=== PATIENT | female | born 1995 | race Caucasian/White ===

== ENCOUNTER 2016-05-23 21:00 | Emergency (ER) | payer OTHER ==
[2016-05-23] MEDS ORDERED: HYDROXYZINE PAMOATE 50 MG CAPSULE PO ONE (21:48)
--- NOTE | 2016-05-23 21:49 | ER Document Report ---
ED Medical Screen (RME) - General Stated Complaint: ITCHING,NAUSEA Notes: 21 yo c/o generalized pruritis, nausea x 4 weeks Had blood done in [place] and LFTs were elevated. No fever. No PCM local. No other symptoms
[2016-05-23 22:20] LABS: ABSOLUTE BASOPHILS # (AUTO) 0.1 10^3/uL (0.0-0.2); ABSOLUTE EOSINOPHILS # (AUTO) 0.3 10^3/uL (0.0-0.6); ABSOLUTE MONOCYTES (AUTO) 0.6 10^3/uL (0.1-1.4); ABSOLUTE NEUT (AUTO) 4.1 10^3/uL (1.7-8.2); BASOPHILS % (AUTO) 0.8 % (0-2); EOSINOPHILS % (AUTO) 3.3 % (0-6); HEMATOCRIT 40.3 % (36.0-47.0); HEMOGLOBIN 13.5 g/dL (12.0-15.5); HGB HCT DIFFERENCE 0.2; LYMPHOCYTES % (AUTO) 37.8 % (13-45); MEAN CORPUSCULAR HEMOGLOBIN 26.5 pg (27.0-33.4); MEAN CORPUSCULAR HGB CONC 33.6 g/dL (32.0-36.0); MEAN CORPUSCULAR VOLUME 79 fl (80-97); SEGMENTED NEUTROPHILS % (AUTO) 51.1 % (42-78)
[2016-05-23 22:34] LABS: ALANINE AMINOTRANSFERASE 87 U/L (9-52); ALBUMIN 4.6 g/dL (3.5-5.0); ALKALINE PHOSPHATASE 80 U/L (38-126); ANION GAP 13 (5-19); ASPARTATE AMINO TRANSFERASE 57 U/L (14-36); BILIRUBIN,TOTAL 0.3 mg/dL (0.2-1.3); BLOOD UREA NITROGEN 15 mg/dL (7-20); CARBON DIOXIDE 29 mmol/L (22-30); CHLORIDE 101 mmol/L (98-107); CREATININE RESULT 0.64 mg/dL (0.52-1.25); GLUCOSE 118 mg/dL (75-110); SODIUM 142.5 mmol/L (137-145); TOTAL PROTEIN 7.8 g/dL (6.3-8.2)
[2016-05-24 02:51] LABS: APPEARANCE,URINE CLOUDY; BILIRUBIN,URINE NEGATIVE (NEGATIVE); GLUCOSE, URINE NEGATIVE (NEGATIVE); KETONES,URINE NEGATIVE (NEGATIVE); LEUKOCYTE ESTERASE,URINE MODERATE (NEGATIVE); NITRITE,URINE NEGATIVE (NEGATIVE); PROTEIN,URINE NEGATIVE (NEGATIVE); URINE SPECIFIC GRAVITY 1.027; UROBILINOGEN,URINE NEGATIVE mg/dL (<2.0)
--- NOTE | 2016-05-24 03:36 | ER Document Report ---
ED General - General Time seen by provider: 03:30 Mode of Arrival: Ambulatory Information source: Patient TRAVEL OUTSIDE OF THE [place] IN LAST 30 DAYS: No - HPI Onset: Other - see HPI Onset/Duration: Sudden, Constant Quality of pain: Other - itchy <RIKY BOYD - Last Filed: 05/24/16 05:28> <COLEMANSP BOSTON - Last Filed: 05/24/16 05:44> - General Chief Complaint: Itching Stated Complaint: ITCHING,NAUSEA Notes: Patient is a 21 year old female presenting to the emergency department complaining of constant itching, tiredness, nausea, and some bruising to her legs. Patient states her liver enzymes were elevated when she had blood work completed in [place]. Patient wanted to get another set of blood work so check the liver enzyme level as well as figure out why she is itching all the time. Patient states the itching has been constant for the past 4 weeks. Patient states that she was given some vistaril for her itching and it provided some relief. (RIKY BOYD) Past Medical History - General Information source: Patient - Social History Smoking Status: Never Smoker Cigarette use (# per day): No Chew tobacco use (# tins/day): No Frequency of alcohol use: None Drug Abuse: None Family History: None Patient has suicidal ideation: No Patient has homicidal ideation: No - Immunizations Hx Diphtheria, Pertussis, Tetanus Vaccination: Yes <RIKY BOYD - Last Filed: 05/24/16 05:28> Review of Systems - Review of Systems Constitutional: No symptoms reported EENT: No symptoms reported Cardiovascular: No symptoms reported Respiratory: No symptoms reported Gastrointestinal: See HPI, Nausea Genitourinary: No symptoms reported Female Genitourinary: No symptoms reported Musculoskeletal: No symptoms reported Skin: See HPI Hematologic/Lymphatic: No symptoms reported Neurological/Psychological: No symptoms reported -: Yes All other systems reviewed and negative <RIKY BOYD - Last Filed: 05/24/16 05:28> Physical Exam - General General appearance: Other - patient is actively itching her extremities during exam In distress: Mild - HEENT Head: Normocephalic, Atraumatic Eyes: Normal Pupils: PERRL Mucous membranes: Normal - Respiratory Respiratory status: No respiratory distress Chest status: Nontender Breath sounds: Normal Chest palpation: Normal - Cardiovascular Rhythm: Regular Heart sounds: Normal auscultation - Abdominal Inspection: Normal Distension: No distension Bowel sounds: Normal Tenderness: Nontender Organomegaly: No organomegaly - Back Back: Normal, Nontender - Extremities General upper extremity: Normal inspection, Normal ROM, Normal strength General lower extremity: Normal ROM, Normal strength, Other - some small bruises on the lower extremities bilaterally - Neurological Neuro grossly intact: Yes Cognition: Normal Orientation: AAOx4 [place] Coma Scale Eye Opening: Spontaneous [place] Coma Scale Verbal: Oriented [place] Coma Scale Motor: Obeys Commands [place] Coma Scale Total: 15 Speech: Normal - Psychological Associated symptoms: Normal affect, Normal mood - Skin Skin Temperature: Warm Skin Moisture: Dry Skin Color: negative: Jaundiced <RIKY BOYD - Last Filed: 05/24/16 05:28> Course - Laboratory Result Diagrams: 05/23/16 22:10 05/23/16 22:10 <RIKY BOYD - Last Filed: 05/24/16 05:28> - Laboratory Result Diagrams: 05/23/16 22:10 05/23/16 22:10 <SP CEE - Last Filed: 05/24/16 05:44> - Re-evaluation Re-evalutation: 05/24/16 Patient is a 21-year-old female who comes in for itching and areas of ecchymosis on her bilateral lower extremities. Patient was seen in an ER in [place] and told that she had some elevation of her LFTs. Patient isn't itching. Vistaril has helped. Patient denies any medications or supplements. She is not jaundice. Patient does not have any abdominal pain or tenderness to palpation. Patient has been instructed to follow up with GI regarding her blood work and symptoms. Symptoms are consistent with cholestasis although I do not have any proof of this at this time. Patient's bilirubin and alkaline phosphatase are within normal limits. Return if any worsening or concerning symptoms. Stable for discharge. Understands agrees with plan. (SP CEE) - Vital Signs Vital signs: Temp Pulse Resp BP Pulse Ox 98.3 F 74 15 124/78 100 05/24/16 03:45 05/24/16 03:45 05/24/16 03:45 05/24/16 03:45 05/24/16 03:45 - Laboratory Laboratory results interpreted by me: 05/23/16 05/23/16 05/24/16 22:10 22:10 02:10 MCV 79 L MCH 26.5 L Glucose 118 H AST 57 H ALT 87 H Ur Leukocyte Esterase MODERATE H (RIKY BOYD) (SP CEE) Discharge <RIKY BOYD - Last Filed: 05/24/16 05:28> <SP CEE - Last Filed: 05/24/16 05:44> - Discharge Clinical Impression: Pruritus, LFTs abnormal Condition: Stable Disposition: HOME, SELF-CARE Instructions: Gastroenterology, Itching, Nonspecific ([facility]) Additional Instructions: Please follow-up with the lone lead lineman regarding your blood work and itching. Please return if you have any worsening or concerning symptoms. Prescriptions: Hydroxyzine Pamoate [Vistaril 25 mg Capsule] 25 mg PO BIDP PRN #14 capsule PRN Reason: Forms: Return to Work Scribe Attestation: 05/24/16 05:44 I personally performed the services described in the documentation, reviewed and edited the documentation which was dictated to the scribe in my presence, and it accurately records my words and actions. (SP CEE) Scribe Documentation <RIKY BOYD - Last Filed: 05/24/16 05:28> <SP CEE - Last Filed: 05/24/16 05:44> - Scribe Written by Scribe:: GHISLAINE MARTINEZ 05/24/16 0341 Acting as scribe for: Dr. Cee (RIKY BOYD) (SP CEE)
[2016-05-24] MEDS ORDERED: ONDANSETRON ODT 4 MG TAB (6 TAB/DSPK) PO PRN (03:42)
[2016-05-24 03:52] VITALS: BP 124/78
== END 2016-05-24 03:52 | disposition home or self-care (01) ==
LOC: ER 21:00
DX: L29.9 Pruritus, unspecified (principal); R11.0 Nausea; R79.89 Other specified abnormal findings of blood chemistry
CPT/HCPCS: 36415; 80053; 81001; 84702; 85025; 99283